=== PATIENT | male | born 1960 | race Caucasian/White ===

== ENCOUNTER → 2024-01-25 | Emergency (ER) | payer BC ==
[~2024-01-25] MED LIST: TDAP (DIPHTH,PERTUSS(ACELL),TET VAC) 0.5 ML VIAL IMVAC ONE
--- OUTSIDE RECORDS SUMMARY | 2024-01-25 13:54 | XMS REPORT | Continuity of Care Document ---
Author Name Unknown Address [address] [facility] [address] [place] [address] [facility] thconnect Address [address] [facility] [address] [place] [address] Care Team Providers Care Vision Mixer Name Role Phone Michelle Faria MD Primary Care Physician LIZANDRO RAMIREZ Attending Clinician Unavailable LADONNA SERVIN Attending Clinician Unavailable CARLITOS XIAO Attending Clinician Unavailable KARTHIKEYAN BLEDSOE Attending Clinician Unavailabl e Lizandro Ramirez DO Attending Clinician [phone] MICHELLE FARIA Attending Clinician Unava ilaaron Doctor Unassigned, [place] Attending Clinician U Michelle Motta MD Attending Clinician [phone] Doni Andrade MD Attending Clinician [phone] DONI ANDRADE Attending Clinician Unavailable STACY BURNETT Attending Clinician Unavailable Stacy Burnett MD Attending Clinician [phone] [facility]-P[facility]ZER [facility] Attending Cli raul Unavailable 2, [facility] Attending Clinician Unavailable Alexandra Linares LMSW Attending Clinician [phone] ESA GRAVES Attending Clinician Unavailable STACY BURNETT Admitting Clinician Unavailable Payers Payer Name Policy Type Policy Number Effective Date Expirati on Date Source [facility] 16 [id number] 2023 00:00:00 BCBS 2 [id number] 2021 00:00:00 Problems Condition Name Condition Details Condition Category Status Onset Date Resolution Date Last Treatment Date Treating Clinician Comments Source SARS-CoV-2 positive SARS-CoV-2 positive Disease Active 8-11 00:00: 00 Marielle Dutta - Externa l Mild sprain of left ankle Mild sprain of left ankle Disease Active 6-24 00:00: 00 Marielle Dutta - Externa l Gastroesop hageal reflux disease with esophagiti s without hemorrhage - Improved Gastroesop hageal reflux disease with esophagiti s without hemorrhage - Improved Disease Active 05-07 00:00: 00 Marielle Dutta - Externa l Erectile dysfunctio n Erectile dysfunctio n Disease Active 05-07 00:00: 00 Marielle Dutta - Externa l No known active problems No known active problems Disease [facility] Social History Social Habit Start Date Stop Date Quantity Comments Source Sexual orientation Bertha miguel Dutta - External Tobacco use and exposure 2023-10-21 00:00:00 2023-10-21 00:00:00 Smokeless tobacco non-user Marielle Dutta - External Alcohol intake 2023-10-21 00:00:00 2023-10-21 00:00:00 Ex-drinker (finding) Marielle Dutta - External Education - What is the highest level of school you have completed or the highest degree you have received? 2023-10-21 00:00:00 2023-10-21 00:00:00 Bachelor's degree (e.g., BA, AB, BS) Marielle Dutta - External History of Social function 2023-10-21 00:00:00 2023-10-21 00:00:00 Marielle Dutta - External Exposure to SARS-CoV-2 (event) 2021-12-26 00:00:00 2022-01-25 14:50:00 Not sure [facility] Sex Assigned At 1960 00:00:00 1960 00:00:00 Marielle Dutta - External Smoking Status Start Date Stop Date Source Never smoked tobacco Marielle Seybold - External Medications Ordered Medication Name Filled Medication Name Start Date Stop Date Current Medication? Ordering Clinician Indication Dosage Frequency Signature (SIG) Comments Components Source predniSONE (DELTASONE) 10 MG oral tablet 2022-11 00:00: 00 Yes [id number] 10mg Take 1 tablet (10 mg total) by mouth daily. Marielle Santiago Externa l predniSONE (DELTASONE) 10 MG oral tablet 2022-11 00:00: 00 10-21 00:00 :00 No [id number] 10mg Take 1 tablet (10 mg total) by mouth daily. Marielle del rosario Benzonatate 100 MG oral Capsule 2022-11 0 00:00: 00 Yes [id number] 100mg Q.[id number] 3D Take 1 capsule (100 mg total) by mouth 3 times daily as needed for cough. Marielle del rosario Benzonatate 100 MG oral Capsule 2022-11 00:00: 00 Yes [id number] 100mg Q.63880667 [id number] 3D Take 1 capsule (100 mg total) by mouth 3 times daily as needed for cough. Marielle del rosario Benzonatate 100 MG oral Capsule 2022-11 00:00: 00 10-21 00:00 :00 No [id number] 100mg Q.[id number] 3D Take 1 capsule (100 mg total) by mouth 3 times daily as needed for cough. Marielle del rosario Lansoprazol e 30 MG oral Delayed Release Capsule 06-29 00:00: 00 Yes 30mg Take 1 capsule (30 mg total) by mouth every morning (before breakfast) . Marielle del rosario Lansoprazol e 30 MG oral Delayed Release Capsule 06-29 00:00: 00 10-21 00:00 :00 No 30mg Take 1 capsule (30 mg total) by mouth every morning (before breakfast) . Marielle del rosario Dexlansopra zole 60 MG oral Delayed Release Capsule 2-18 00:00: 00 Yes [id number] 60mg Take 1 capsule (60 mg total) by mouth daily Marielle Langley miguel ángel Dexlansopra zole 60 MG oral Delayed Release Capsule 0 2-18 00:00: 00 Yes [id number] 60mg Take 1 capsule (60 mg total) by mouth daily Marielle del rosario Dexlansopra zole 60 MG oral Delayed Release Capsule 0 2-18 00:00: 00 Yes [id number] 60mg Take 1 capsule (60 mg total) by mouth daily Marielle Langley miguel ángel Dexlansopra zole 60 MG oral Delayed Release Capsule 0 2-18 00:00: 00 10-21 00:00 :00 No [id number] 60mg Take 1 capsule (60 mg total) by mouth daily Marielle Santiago Shivam del rosario Benzonatate (Tessalon Perles) 100 MG oral Capsule 8-11 00:00: 00 Yes [id number] 100mg Q.[id number] 3D Take 1 capsule (100 mg total) by mouth 3 times daily as needed for cough Marielle Santiago Josianesinan miguel ángel Benzonatate (Tessalon Perles) 100 MG oral Capsule 8-11 00:00: 00 08-29 00:00 :00 No [id number] 86059 100mg Q.[id number] 3D Take 1 capsule (100 mg total) by mouth 3 times daily as needed for cough Marielle Burksyesseniadeja Santiago Josianesinan miguel ángel Escitalopra m Oxalate 5 MG oral Tablet 04-07 00:00: 00 Yes [id number] 5mg Take 1 tablet (5 mg total) by mouth daily Marielle Macdeja Escitalopra m Oxalate 5 MG oral Tablet 6 00:00: 00 Yes [id number] 5mg Take 1 tablet (5 mg total) by mouth daily Marielle Burksgeronimo del rosario Escitalopra m Oxalate 5 MG oral Tablet 6 00:00: 00 08-29 00:00 :00 No [id number] 5mg Take 1 tablet (5 mg total) by mouth daily Marielle del rosario Pantoprazol e Sodium 40 MG oral Tablet Delayed Response 5-09 00:00: 00 Yes TAKE 1 TABLET BY MOUTH ONCE DAILY 30 MINUTES BEFORE BREAKFAST ON AN EMPTY STOMACH Marielle Dutta Famotidine (PEPCID) 20 MG oral tablet 03-15 00:00: 00 Yes 20mg Take 20 mg by mouth at bedtime every day Marielle Dutta Pantoprazol e Sodium 40 MG oral Tablet Delayed Response 03-15 00:00: 00 12-25 00:00 :00 No TAKE 1 TABLET BY MOUTH ONCE DAILY 30 MINUTES BEFORE BREAKFAST ON AN EMPTY STOMACH Marielle Burksyesseniadeja - Josianea miguel ángel Famotidine (PEPCID) 20 MG oral tablet 03-15 00:00: 00 12-25 00:00 :00 No 20mg Take 20 mg by mouth at bedtime every day Marielle Joshuaa miguel ángel oseltamivir (TAMIFLU) 75 mg capsule 01-15 00:00: 00 Yes [id number] 75mg Take 1 capsule by mouth 2 (two) times daily. [facility] ondansetron 4 mg tablet 0 01-15 00:00: 00 Yes 4mg Take 4 mg by mouth. [facility] oseltamivir (TAMIFLU) 75 mg capsule 0 01-15 00:00: 00 Yes [id number] 75mg Take 1 capsule by mouth 2 (two) times daily. [facility] ondansetron 4 mg tablet 0 - 00:00: 00 Yes 4mg Take 4 mg by mouth. [facility] oseltamivir (TAMIFLU) 75 mg capsule 0 - 00:00: 00 Yes [id number] 75mg Take 1 capsule by mouth 2 (two) times daily. [facility] ondansetron 4 mg tablet 0 01-15 00:00: 00 Yes 4mg Take 4 mg by mouth. [facility] oseltamivir (TAMIFLU) 75 mg capsule 0 - 00:00: 00 Yes [id number] 75mg Take 1 capsule by mouth 2 (two) times daily. [facility] ondansetron 4 mg tablet 2021-0 -11 00:00: 00 Yes 4mg Take 4 mg by mouth. [facility] Ondansetron HCl 4 MG oral Tablet 3 00:00: 00 Yes [id number] 4mg Q.[id number] 3D Take 1 tablet (4 mg total) by mouth every 8 hours as needed for nausea Marielle Dutta Ondansetron HCl 4 MG oral Tablet 3- 00:00: 00 Yes [id number] 4mg Q.[id number] 3D Take 1 tablet (4 mg total) by mouth every 8 hours as needed for nausea Marielle Seybold - Externa l Ondansetron HCl 4 MG oral Tablet 3 00:00: 00 08-29 00:00 :00 No [id number] 4mg Q.34228460 [id number] 3D Take 1 tablet (4 mg total) by mouth every 8 hours as needed for nausea Marielle Seybold - Externa l valACYclovi r 500 mg tablet 2020-11 00:00: 00 Yes 500mg Take 500 mg by mouth. [facility] valACYclovi r 500 mg tablet 2020-11 00:00: 00 Yes 500mg Take 500 mg by mouth. [facility] valACYclovi r 500 mg tablet 2020-11 00:00: 00 Yes 500mg Take 500 mg by mouth. [facility] valACYclovi r 500 mg tablet 2020-11 00:00: 00 Yes 500mg Take 500 mg by mouth. [facility] Valacyclovi r HCl 500 MG oral Tablet 2020-11 2- 00:00: 00 Yes [id number] 500mg Take 1 tablet (500 mg total) by mouth 2 times daily Take 1 tablet by mouth 2 times daily for 3 days at first sign of outbreak Marielle Seybold Valacyclovi r HCl 500 MG oral Tablet 2020-11 2 00:00: 00 Yes [id number] 500mg Take 1 tablet (500 mg total) by mouth 2 times daily Take 1 tablet by mouth 2 times daily for 3 days at first sign of outbreak Marielle Seybold Valacyclovi r HCl 500 MG oral Tablet 2020-11 2- 00:00: 00 Yes [id number] 500mg Take 1 tablet (500 mg total) by mouth 2 times daily Take 1 tablet by mouth 2 times daily for 3 days at first sign of outbreak Marielle Burksybold - Externa l Valacyclovi r HCl 500 MG oral Tablet 2020-11 2 00:00: 00 08-29 00:00 :00 No [id number] 500mg Take 1 tablet (500 mg total) by mouth 2 times daily Take 1 tablet by mouth 2 times daily for 3 days at first sign of outbreak Marielle Seybold - Externa l Omeprazole 20 MG oral Delayed Release Capsule 2020-11 0-05 00:00: 00 Yes [id number] Take 1 capsule by mouth once daily Marielle Dutta Omeprazole 20 MG oral Delayed Release Capsule 2020-11 005 00:00: 00 Yes [id number] Take 1 capsule by mouth once daily Marielle Dutta Omeprazole 20 MG oral Delayed Release Capsule 2020-11 0 00:00: 00 12-25 00:00 :00 No [id number] Take 1 capsule by mouth once daily Marielle Dutta - Externa l silver sulfADIAZIN E 1 % cream 05-19 00:00: 00 Yes Apply to affected area(s) 2 (two) times daily. [facility] silver sulfADIAZIN E 1 % cream 05-19 00:00: 00 Yes Apply to affected area(s) 2 (two) times daily. [facility] silver sulfADIAZIN E 1 % cream 05-19 00:00: 00 Yes Apply to affected area(s) 2 (two) times daily. [facility] silver sulfADIAZIN E 1 % cream 05-19 00:00: 00 Yes Apply to affected area(s) 2 (two) times daily. [facility] Silver sulfADIAZIN E (SSD) 1 % apply externally Cream 05-19 00:00: 00 Yes [id number] Apply twice a day to affected area Marielle Dutta Silver sulfADIAZIN E (SSD) 1 % apply externally Cream 05-19 00:00: 00 Yes [id number] Apply twice a day to affected area Marielle Seybold Silver sulfADIAZIN E (SSD) 1 % apply externally Cream 05-19 00:00: 00 Yes [id number] Apply twice a day to affected area Marielle Dutta - Externa l Silver sulfADIAZIN E (SSD) 1 % apply externally Cream 05-19 00:00: 00 08-29 00:00 :00 No [id number] Apply twice a day to affected area Marielle Dutta - Josianea l tadalafiL 20 mg tablet 05-07 00:00: 00 Yes 20mg Take 20 mg by mouth. [facility] tadalafiL 20 mg tablet 05-07 00:00: 00 Yes 20mg Take 20 mg by mouth. [facility] tadalafiL 20 mg tablet 05-07 00:00: 00 Yes 20mg Take 20 mg by mouth. [facility] tadalafiL 20 mg tablet 05-07 00:00: 00 Yes 20mg Take 20 mg by mouth. [facility] Tadalafil (Cialis) 20 MG oral Tablet 05-07 00:00: 00 Yes [id number] 20mg Take 1 tablet (20 mg total) by mouth as needed for erectile dysfunctio n Marielle Dutta Tadalafil (Cialis) 20 MG oral Tablet 05-07 00:00: 00 Yes [id number] 20mg Take 1 tablet (20 mg total) by mouth as needed for erectile dysfunctio n Marielle Dutta Tadalafil (Cialis) 20 MG oral Tablet 05-07 00:00: 00 Yes [id number] 20mg Take 1 tablet (20 mg total) by mouth as needed for erectile dysfunctio n Marielle Burksybold - Externa l Tadalafil (Cialis) 20 MG oral Tablet 05-07 00:00: 00 08-29 00:00 :00 No [id number] 20mg Take 1 tablet (20 mg total) by mouth as needed for erectile dysfunctio n Marielle Burksyesseniadeja - Externa l omeprazole 20 mg capsule 04-09 00:00: 00 Yes 20mg Take 20 mg by mouth. [facility] omeprazole 20 mg capsule 04-09 00:00: 00 Yes 20mg Take 20 mg by mouth. [facility] omeprazole 20 mg capsule 04-09 00:00: 00 Yes 20mg Take 20 mg by mouth. [facility] omeprazole 20 mg capsule 04-09 00:00: 00 Yes 20mg Take 20 mg by mouth. [facility] Omeprazole 20 MG oral Delayed Release Capsule 04-09 00:00: 00 Yes 20mg Take 20 mg by mouth every morning Marielle Dutta Omeprazole 20 MG oral Delayed Release Capsule 04-09 00:00: 00 Yes 20mg Take 20 mg by mouth every morning Marielle Dutta Omeprazole 20 MG oral Delayed Release Capsule 04-09 00:00: 00 12-25 00:00 :00 No 20mg Take 20 mg by mouth every morning Marielle Santiago Externa l Immunizations Ordered Immunization Name Filled Immunization Name Date Status Comments Source Covid-19 Vaccine (Videum), Mrna-lnp, Jackson Protein, Pf, 30mcg/0.3ml,IM 2021-10-16 00:00:00 Deb Dutta Covid-19 Vaccine (Videum), Mrna-lnp, Jackson Protein, Pf, 30mcg/0.3ml,IM 2021-10-16 00:00:00 Completed Marielle Dutta Covid-19 Vaccine (Videum), Mrna-lnp, Jackson Protein, Pf, 30mcg/0.3ml,IM 2021-10-16 00:00:00 Deb Fajardo SARS-COV-2 COVID-19 PFIZER VACCINE 2021-02-21 00:00:00 Completed [facility] SARS-COV-2 COVID-19 PFIZER VACCINE 2021-01-26 00:00:00 Completed [facility] Tdap- (Boostrix, Adacel) 2020-01-16 00:00:00 Completed Marielle Dutta Tdap- (Boostrix, Adacel) 2020-01-16 00:00:00 Completed Marielle Dutta Tdap- (Boostrix, Adacel) 2020-01-16 00:00:00 Completed Marielle Seybold - External Shingles SQ (Zostavax) 2014-09-05 00:00:00 Completed Marielle Seybold Shingles SQ (Zostavax) 2014-09-05 00:00:00 Completed Marielle Seybold Shingles SQ (Zostavax) 2014-09-05 00:00:00 Completed Marielle Seybold - External Tdap- (Boostrix, Adacel) 2012-11-02 00:00:00 Completed Marielle Seybold Tdap- (Boostrix, Adacel) 2012-11-02 00:00:00 Completed Marielle Seybold Tdap- (Boostrix, Adacel) 2012-11-02 00:00:00 Completed Marielle Seybold - External Tdap- (Boostrix, Adacel) Unknown Completed Marielle Seybold - External Tdap- (Boostrix, Adacel) Unknown Completed Marielle Seybold - External Shingles SQ (Zostavax) [facility] (Videum), Mrna-lnp, Jackson Protein, Pf, 30mcg/0.3ml,IM Unknown Completed Marielle Seybol d - External Tdap- (Boostrix, Adacel) Unknown Completed Marielle Seybold - External Tdap- (Boostrix, Adacel) Unknown Completed Marielle Seybold - External Shingles SQ (Zostavax) Unknown Completed Marielle old - External Covid-19 Vaccine (Videum), Mrna-lnp, Jackson Protein, Pf, 30mcg/0.3ml,IM Unknown Completed Marielle Seybol d - External Shingles IM (Shingrix) Unknown Completed Marielle Seybold - External Shingles IM (Shingrix) Unknown Completed Marielle Seybold - External Tdap- (Boostrix, Adacel) Unknown Completed Marielle Seybold - External Tdap- (Boostrix, Adacel) Unknown Completed Marielle Seybold - External Shingles SQ (Zostavax) Unknown [facility] (Videum), Mrna-lnp, Jackson Protein, Pf, 30mcg/0.3ml,IM Unknown Completed Marielle Gallagher d - External SARS-COV-2 COVID-19 PFIZER VACCINE Unknown Completed [facility] SARS-COV-2 COVID-19 PFIZER VACCINE Unknown Completed [facility] SARS-COV-2 COVID-19 PFIZER VACCINE Unknown Completed [facility] SARS-COV-2 COVID-19 PFIZER VACCINE Unknown Completed [facility] SARS-COV-2 COVID-19 PFIZER VACCINE Unknown Completed [facility] SARS-COV-2 COVID-19 PFIZER VACCINE Unknown Completed [facility] Vital Signs Vital Name Observation Time Observation Value Comments S ource Systolic blood pressure 2023-10-21 20:51:00 116 mm[Hg] Marielle Seybo ld - External Diastolic blood pressure 2023-10-21 20:51:00 72 mm[Hg] Marielle Seybo ld - External Heart rate 2023-10-21 20:51:00 76 /min Kelse y Seybold - External Body temperature 2023-10-21 20:51:00 36.94 Giana Marielle Seybold - External Respiratory rate 2023-10-21 20:51:00 16 /min Marielle Seybold - External Body height 2023-10-21 20:51:00 180.3 cm Leatha ey Seybold - External Body weight 2023-10-21 20:51:00 87.091 kg Leatha ey Seybold - External BMI 2023-10-21 20:51:00 26.78 kg/m2 Leatha ey Seybold - External Oxygen saturation in Arterial blood by Pulse oximetry 2023-10-21 20:51:00 98 /min Marielle Seybo ld - External Systolic blood pressure 2023-09-08 16:16:00 125 mm[Hg] Marielle Seybo ld - External Diastolic blood pressure 2023-09-08 16:16:00 85 mm[Hg] Marielle Seybo ld - External Heart rate 2023-09-08 16:16:00 75 /min Kelse y Seybold - External Body temperature 2023-09-08 16:16:00 37.22 Giana Marielle Seybold - External Respiratory rate 2023-09-08 16:16:00 20 /min Marielle Seybold - External Body weight 2023-09-08 16:16:00 83.462 kg Leatha ey Seybold - External BMI 2023-09-08 16:16:00 25.66 kg/m2 Leatha ey Seybold - External Oxygen saturation in Arterial blood by Pulse oximetry 2023-09-08 16:16:00 97 /min Marielle Seybo ld - External Diastolic blood pressure 2022-04-07 16:26:00 67 mm[Hg] Marielle Seybo ld Heart rate 2022-04-07 16:26:00 73 /min Kelse y Seybold Body temperature 2022-04-07 16:26:00 36.78 Giana Marielle Seybold Respiratory rate 2022-04-07 16:26:00 14 /min Marielle Seybold Body height 2022-04-07 16:26:00 180.3 cm Leatha ey Seybold Body weight 2022-04-07 16:26:00 79.833 kg Leatha ey Seybold BMI 2022-04-07 16:26:00 24.55 kg/m2 Leatha ey Seybold Systolic blood pressure 2022-04-07 16:26:00 110 mm[Hg] Marielle Seybo ld Systolic blood pressure 2021-10-16 15:15:00 110 mm[Hg] Marielle Seybo ld Diastolic blood pressure 2021-10-16 15:15:00 64 mm[Hg] Marielle Seybo ld Heart rate 2021-10-16 15:15:00 59 /min Kelse y Seybold Body temperature 2021-10-16 15:15:00 35.89 Giana Marielle Seybold Respiratory rate 2021-10-16 15:15:00 16 /min Marielle Seybold Body height 2021-10-16 15:15:00 180.3 cm Leatha ey Seybold Body weight 2021-10-16 15:15:00 78.019 kg Leatha ey Seybold BMI 2021-10-16 15:15:00 23.99 kg/m2 Leatha ey Seybold Oxygen saturation in Arterial blood by Pulse oximetry 2021-10-16 15:15:00 98 /min Marielle Seybo ld Procedures Procedure Date / Time Performed Performing Clinicia n Source [facility] 2023-10-21 21:39:44 PreLizandro mccray Marielle Luzmaria - External Encounters Start Date/Time End Date/Time Encounter Type Admission Type Attending [facility] Care Department Encounter ID Source 2024-04-20 09:30:00 2024-04-20 09:30:00 Outpatient LIZANDRO RAMIREZ MARIELLE ZALDIVAR [id number] Marielle Dutta 2023-11-01 00:00:00 2023-11-01 00:00:00 Outpatient LIZANDRO RAMIREZ MARIELLE ZALDIVAR [id number] Marielle Burksdeja 2023-10-21 14:45:00 2023-10-21 14:45:00 Outpatient PREMENA MCCRAYMIRELLA ZALDIVAR [id number] Marielle Dutta 2023-10-21 00:00:00 2023-10-21 00:00:00 Outpatient [facility]DIV[facility] [id number] [facility]23-[facility]-21 00:00:00 2023-09-21 00:00:00 Outpatient PRELIZANDRO MCCRAY MARIELLE ZALDIVAR [id number] [facility] 2023-09-08 11:45:00 2023-09-08 11:45:00 Outpatient PREZAMENA DuttonMIRELLA ZALDIVAR [id number] Marielle [facility] 2023-08-30 00:00:00 2023-08-30 00:00:00 Outpatient MALATHI LDAONNA ZALDIVAR [id number] Marielle [facility] 2023-08-29 18:00:00 2023-08-29 18:00:00 Outpatient MALATHIMUNDOLEXI ZALDIVAR [id number] [facility] 2023-08-29 00:00:00 2023-08-29 00:00:00 Outpatient PREZANato LIZANDRO ZALDIVAR [id number] [facility]22-12-25 14:15:00 2022-12-25 14:15:00 [facility] [id number] [facility] 00:00:00 2022-12-25 00:00:00 Outpatient KARTHIKEYAN BLEDSOE [id number] [facility] 2022-06-17 11:30:00 2022-06-17 11:45:00 Telemedici ne Lizandro Ramirez 1.2.840.114 350.1.13.13 [id number] [id number] Marielle [facility] 2022-06-17 00:00:00 2022-06-17 00:00:00 Outpatient MICHELLE FARIA MARIELLE [id number] Marielle [facility] 2022-06-17 00:00:00 2022-06-17 00:00:00 Outpatient LIZANDRO RAMIREZ MARIELLE [id number] [facility] 2022-04-30 14:45:00 2022-04-30 15:00:00 Office Visit Lizandro Ramirez 1.2.840.114 350.1.13.13 [id number] [id number] [facility] 2022-04-08 00:00:00 2022-04-08 00:00:00 Patient Secure Msg Doctor Unassigned, [place] [facility] 1.2.840.114 350.1.13.10 4.2.7.2.686 [id number] [facility] 2022-04-07 11:15:00 2022-04-07 11:45:00 Office Visit Michelle Faria 1.2.840.114 350.1.13.13 1.2.7.2.686 [id number] [facility] 2022-04-05 00:00:00 2022-04-05 00:00:00 Patient Secure Msg Doctor Unassigned, [place] [facility] 1.2.840.114 350.1.13.10 4.2.7.2.686 [id number] [facility] 2022-02-20 00:00:00 2022-02-20 00:00:00 Patient Secure Msg Doni Andrade [facility] 1.2.840.114 350.1.13.10 4.2.7.2.686 [id number] [facility] 2022-02-17 00:00:00 2022-02-17 00:00:00 Telephone Raymond [facility] 1.2.840.114 350.1.13.10 4.2.7.2.686 [id number] [facility] 2022-02-05 00:00:00 2022-02-05 00:00:00 Orders Only Doctor Unassigned, [place] [facility] 1.2.840.114 350.1.13.10 4.2.7.2.686 [id number] [facility] 2022-01-25 16:15:00 2022-01-25 16:39:52 [facility] [id number] [facility] 2022-01-25 16:15:00 2022-01-25 16:39:52 Office Visit Raymond [facility] 1.2.840.114 350.1.13.10 4.2.7.2.686 [id number] [facility] 2022-01-25 00:00:00 2022-01-25 00:00:00 Orders Only Doctor Unassigned, [place] [facility] 1.2.840.114 350.1.13.10 4.2.7.2.686 [id number] [facility] 2022-01-14 23:25:00 2022-01-15 02:25:00 Emergency X STACY BURNETT [facility] [id number] [facility] 2022-01-14 23:25:00 2022-01-15 02:25:00 Emergency X STACY BURNETT [facility] [id number] [facility] 2022-01-14 23:25:00 2022-01-15 02:25:00 Emergency Stacy Burnett [facility] 1.2.840.114 350.1.13.10 4.2.7.2.686 [id number] [facility] 2022-01-15 00:00:00 2022-01-15 00:00:00 Outpatient GIANAMILVIAKATINA ZALDIVAR [id number] [facility] 2022-01-15 00:00:00 2022-01-15 00:00:00 Outpatient GIANA MICHELLE ZALDIVAR [id number] [facility] 2021-11-17 00:00:00 2021-11-17 00:00:[facility] 1.2.840.114 350.1.13.10 4.2.7.2.686 [id number] [facility] 2021-10-16 10:30:00 2021-10-16 10:30:00 Outpatient COVID-PFIZE R JUSTYNA AP MARIELLE ZALDIVAR [id number] [facility] 2021-10-16 09:30:00 2021-10-16 10:00:00 Office Visit GianaMilviakatina [place] 1.2.840.114 350.1.13.13 1.2.7.2.686 [id number] [facility] 2021-06-19 00:00:00 2021-06-19 00:00:00 Telephone Raymond [facility] 1.2.840.114 350.1.13.10 4.2.7.2.686 [id number] [facility] 2021-06-18 10:39:55 2021-06-18 10:54:55 Materials Management Supervisor Visit 2, [facility] 1.2.840.114 350.1.13.10 4.2.7.2.686 [id number] [facility] [facility] 2021-06-18 09:48:26 2021-06-18 10:36:57 Office Visit [facility] [id number] [facility] 2021-06-18 10:00:00 2021-06-18 10:00:00 [id number] 2021-06-18 00:00:00 2021-06-18 00:00:00 Orders Only Doctor Unassigned, [place] [facility] [id number] [facility] 2021-06-18 00:00:00 2021-06-18 00:00:00 Patient Outreach Alexandra Linares [facility] [id number] [facility] 2021-06-08 00:00:00 2021-06-08 00:00:00 Outpatient MICHELLE FARIA [id number] Marielle Dutta 2021-05-19 11:15:00 2021-05-19 11:15:00 Outpatient MICHELLE FARIA [id number] Marielle Dutta 2021-02-21 11:05:00 2021-02-21 14:15:27 Outpatient ESA MONTEJO [facility] [id number] [facility] 2021-01-26 13:40:00 2021-01-26 13:19:17 Outpatient ESA MONTEJO [facility] [id number] [facility] Results Test Description Test Time Test Comments Results Result Co mments Source Marielle Dutta - External
--- NOTE | 2024-01-25 14:07 | EDPHYS ---
Physician Documentation [facility] Name: Scott Ibarra Age: 64 yrs Sex: Male : 1960 Arrival Date: 01/25/2024 Time: 13:50 Bed 12 Private MD: ED Physician Albina Guajardo HPI: 01/24 14:05 This 64 yrs old Male presents to ER via Ambulatory with complaints of Puncture Wound To kb Arm. 14:05 Patient is a 64-year-old male who was taking apart a cabinet and one of the pieces of [employer] wood had a nail in it that struck his right forearm causing puncture wound. Denies any other injury. Bleeding controlled.. Historical: - Allergies: 14:02 No Known Allergies; ld1 - Home Meds: 14:02 None [Active]; ld1 - PMHx: 14:02 None; ld1 - PSHx: 14:02 None; ld1 - Immunization history:: Adult Immunizations up to date. - Social history:: Smoking status: Patient denies any tobacco usage or history of. Patient/guardian denies using alcohol. ROS: 14:03 Constitutional: As per HPI kb Exam: 14:03 Constitutional: This is a well developed, well nourished patient who is awake, alert, kb and in no acute distress. Head/Face: Normocephalic, atraumatic. ENT: Moist Mucous membranes Cardiovascular: Regular rate Respiratory: Respirations even and unlabored. No increased work of breathing. Talking in full sentences MS/ Extremity: Pulses equal, no cyanosis. Neurovascular intact. Full, normal range of motion. Neuro: Awake and alert, GCS 15, oriented to person, place, time, and situation. Moves all extremities. Normal gait. 14:03 Skin: injury, puncture(s), that are superficial, of the dorsal aspect of right forearm, with small hematoma, Vital Signs: 14:01 BP 118 / 80; Pulse 74; Resp 18; Temp 97.6(TE); Pulse Ox 98% on R/A; Weight 85.73 kg; ld1 Height 5 ft. 10 in. ; Pain 0/10; 14:01 Body Mass Index 27.12 (85.73 kg, 177.8 cm) ld1 14:01 Pain Scale: Adult ld1 MDM: 13:58 Patient medically screened. kb 14:04 Data reviewed: vital signs, nurses notes. kb 14:04 Differential diagnosis: superficial laceration, tendon injury, vascular injury, kb puncture wound. Historians other than the Patient: Spouse/Significant Other: . Counseling: I had a detailed discussion with the patient and/or guardian regarding the historical points, exam findings, and any diagnostic results supporting the discharge/admit diagnosis, the need for outpatient follow up, a family practitioner, to return to the emergency department if symptoms worsen or persist or if there are any questions or concerns that arise at home. Administered Medications: 14:28 Drug: Boostrix Tdap IM 0.5 ml IM once; as a single dose Route: IM; Site: left deltoid; kd3 14:30 Follow up: Response: No adverse reaction kd3 Disposition Summary: 01/25/24 14:06 Discharge Ordered Notes: Location: Home kb Condition: Stable kb Diagnosis - Puncture wound without foreign body of forearm kb Followup: kb - With: Emergency Department - When: As needed - Reason: Worsening of condition Followup: kb - With: Private Physician - When: 2 - 3 days - Reason: Recheck today's complaints, Continuance of care, Re-evaluation by your physician Discharge Instructions: - Discharge Summary Sheet kb - Puncture Wound, Siip-ic-Tqye kb Forms: - Medication Reconciliation Form kb - Thank You Letter kb - Antibiotic Education kb - Prescription Opioid Use kb - Patient Portal Instructions kb - Leadership Thank You Letter kb Signatures: Ana Levy, Babita Sparks RN RN ld1 Azalea Neil RN RN kd3 Corrections: (The following items were deleted from the chart) 14:02 14:02 Allergies: No Known Allergies; ld1 ld1
--- NOTE | 2024-01-25 14:07 | ER ---
Nurse's Notes [facility] Name: Scott Ibarra Age: 64 yrs Sex: Male : 1960 Arrival Date: 01/25/2024 Time: 13:50 Bed 12 Private MD: Diagnosis: Puncture wound without foreign body of forearm Presentation: 01/24 14:01 Chief complaint: Patient states: Nail puncture wound to right forearm - pt was taking ld1 down cabinet and nail cut arm. Coronavirus screen: At this time, the client does not indicate any symptoms associated with coronavirus-19. Ebola Screen: No symptoms or risks identified at this time. Initial Sepsis Screen: Does the patient meet any 2 criteria? No. Patient's initial sepsis screen is negative. Does the patient have a suspected source of infection? No. Patient's initial sepsis screen is negative. Risk Assessment: Do you want to hurt yourself or someone else? Patient reports no desire to harm self or others. Onset of symptoms was January 25, 2024. 14:01 Method Of Arrival: Ambulatory ld1 14:01 Acuity: KORTNEY 4 ld1 Triage Assessment: 14:02 General: Appears in no apparent distress. comfortable, Behavior is calm, cooperative, ld1 appropriate for age. Pain: Denies pain. EENT: No signs and/or symptoms were reported regarding the EENT system. Neuro: Level of Consciousness is awake, alert, obeys commands, Oriented to person, place, time, situation. Cardiovascular: Capillary refill < 3 seconds Patient's skin is warm and dry. Respiratory: Airway is patent Respiratory effort is even, unlabored. GI: Abdomen is flat, non-distended. : No signs and/or symptoms were reported regarding the genitourinary system. Derm: No signs and/or symptoms reported regarding the dermatologic system. Musculoskeletal: No signs and/or symptoms reported regarding the musculoskeletal system. Historical: - Allergies: 14:02 No Known Allergies; ld1 - Home Meds: 14:02 None [Active]; ld1 - PMHx: 14:02 None; ld1 - PSHx: 14:02 None; ld1 - Immunization history:: Adult Immunizations up to date. - Social history:: Smoking status: Patient denies any tobacco usage or history of. Patient/guardian denies using alcohol. Screenin:29 [facility] ED Fall Risk Assessment (Adult) History of falling in the last 3 months, kd3 including since admission No falls in past 3 months (0 pts) Confusion or Disorientation No (0 pts) Intoxicated or Sedated No (0 pts) Impaired Gait No (0 pts) Mobility Assist Device Used No (0 pt) Altered Elimination No (0 pt) Score/Fall Risk Level 0 - 2 = Low Risk Oriented to surroundings. Abuse screen: Denies threats or abuse. Denies injuries from another. Nutritional screening: No deficits noted. Tuberculosis screening: No symptoms or risk factors identified. Assessment: 14:29 General: Appears in no apparent distress. Behavior is calm, cooperative, bleeding kd3 controlled, wound dressed by this RN. Tetanus administered. . Vital Signs: 14:01 BP 118 / 80; Pulse 74; Resp 18; Temp 97.6(TE); Pulse Ox 98% on R/A; Weight 85.73 kg; ld1 Height 5 ft. 10 in. ; Pain 0/10; 14:01 Body Mass Index 27.12 (85.73 kg, 177.8 cm) ld1 14:01 Pain Scale: Adult ld1 ED Course: 13:57 Patient arrived in ED. mg5 13:58 Ana Levy FNP-C [facility]. kb 13:58 Albina Guajardo MD is Attending Physician. kb 14:02 Triage completed. ld1 14:02 Arm band placed on right wrist. ld1 14:29 Patient has correct armband on for positive identification. Provided Education on: kd3 puncture wound . 14:30 No provider procedures requiring assistance completed. Patient did not have IV access kd3 during this emergency room visit. Administered Medications: 14:28 Drug: Boostrix Tdap IM 0.5 ml IM once; as a single dose Route: IM; Site: left deltoid; kd3 14:30 Follow up: Response: No adverse reaction kd3 Medication: 14:19 Vaccine Information Statement (VIS) provided today. Questions and/or concerns kd3 addressed. VIS edition date: June 12, 2021. Outcome: 14:06 Discharge ordered by . beau 14:30 Discharged to home ambulatory, with family, kd3 14:30 Condition: stable 14:30 Discharge instructions given to patient, family, Instructed on discharge instructions, follow up and referral plans. Demonstrated understanding of instructions, follow-up care, 14:30 Patient left the ED. kd3 Signatures: nAa Levy FNP-C FNP-Babita Moeller RN RN ld1 Azalea Neil RN RN kd3 Randi Welsh mg5 Corrections: (The following items were deleted from the chart) 14:02 14:02 Allergies: No Known Allergies; ld1 ld1
[2024-01-25 15:00] VITALS: BP 118/80; TEMP 97.6; O2SAT 98
== END ==
LOC: ER 13:50
DX: S51.831A Puncture wound without foreign body of right forearm, initial encounter (principal)